=== PATIENT | female | born 1965 | race Hispanic/Latino ===

== ENCOUNTER 2023-11-03 07:04 | Day surgery (SDC) | payer BC ==
[2023-11-03] VITALS (12 sets, daily range): BP systolic 116–134; BP diastolic 60–76; PULSE 48–69; RESP 14–18
[~2023-11-03] VITALS: Ht 157.5 cm; Wt 56.7 kg
[~2023-11-03 07:04] MED LIST: ALBU2.5V2 IH; ALEN70TA80 PO; AZIT500T4 PO; FLUT1BLS15 IH; HYPERTONIC SALINE IH; VALA500T42 PO; [UNRECOGNIZED DRUG - CODE] IH; [UNRECOGNIZED DRUG - CODE] IH; [UNRECOGNIZED DRUG - CODE] IL
[2023-11-03] MEDS ORDERED: 0.9%NACL 1000ML 1,000 ML IV ONE (07:28)
[2023-11-03] MEDS ORDERED: PROPOFOL 10 MG/ML 20ML VIAL IV ONE (10:01)
== END 2023-11-03 11:52 | disposition home or self-care (01) ==
LOC: DAH 07:04 → ENDO 07:04
PROVIDERS: ATTEND Internal Medicine Gastroenterology
DX: K92.1 Melena (principal); K57.30 Diverticulosis of large intestine without perforation or abscess without bleeding; J44.9 Chronic obstructive pulmonary disease, unspecified; M81.0 Age-related osteoporosis without current pathological fracture; Z79.01 Long term (current) use of anticoagulants; Z79.899 Other long term (current) drug therapy
CPT/HCPCS: 82948; 45378; J7030 ×2; J2704; A4620; A4215 ×2; A4223; A7002; A4222; A4221; A4663; A4606; J3490